=== PATIENT | male | born 1990 | race Caucasian/White ===

== ENCOUNTER 2020-02-18 16:52 | Emergency (ER) | payer OTHER ==
[~2020-02-18] VITALS: Ht 182.9 cm; Wt 87.5 kg
[2020-02-18 19:12] VITALS: BP 117/77
--- NOTE | 2020-02-18 21:27 | ED.ADGEN ---
Past Medical History Past Medical History: No Pertinent History Past Surgical History: No Surgical History Smoking Status: Current Every Day Smoker Alcohol Use: None General Adult EDM: Chief Complaint: OTHER COMPLAINTS HPI: HPI: Patient is a 29 year old male who presents to the emergency department with complaints of loss of taste and smell for the last 2 days. Patient reports that he has been a resident at [facility] for the last 2 weeks but they sent him here to the hospital for a Covid test after he advised them of his symptoms. Patient states that he was not able to go back to [facility] unless his test was negative. Patient denied any fever, shortness of breath, nausea, vomiting, diarrhea, abdominal pain, body aches, rash, or fatigue. He states he does have a dry cough but denies any shortness of breath. He currently denies any pain. Review of Systems: Review of Systems: Complete ROS is negative unless otherwise noted in HPI. Physical Exam: PE: See Above Constitutional: Well developed, well nourished, no acute distress, non-toxic appearance. [] HENT: Normocephalic, atraumatic, bilateral external ears normal, nose normal. [] Eyes: PERRLA, EOMI, conjunctiva normal, no discharge. [] Neck: Normal range of motion, no stridor. [] Cardiovascular:Heart rate regular rhythm Lungs & Thorax: Respirations even and unlabored, no retractions, no respiratory distress Skin: Warm, dry, no erythema, no rash. [] Extremities: No cyanosis, ROM intact, no edema. [] Neurologic: Alert and oriented X 3, no focal deficits noted. [] Psychologic: Affect normal, judgement normal, mood normal. [] Current Patient Data: Vital Signs: Vital Signs Date Time Temp Pulse Resp B/P (MAP) Pulse Ox O2 Delivery O2 Flow Rate FiO2 02/18/20 19:12 97.9 63 16 117/77 (90) 98 97.9 EKG: EKG: [] Heart Score: Risk Factors: Risk Factors: DM, Current or recent (<one month) smoker, HTN, HLP, family history of CAD, obesity. Risk Scores: Score 0 - 3: 2.5% MACE over next 6 weeks - Discharge Home Score 4 - 6: 20.3% MACE over next 6 weeks - Admit for Clinical Observation Score 7 - 10: 72.7% MACE over next 6 weeks - Early Invasive Strategies Radiology/Procedures: Radiology/Procedures: [] Course & Med Decision Making: Course & Med Decision Making Pertinent Labs and Imaging studies reviewed. (See chart for details) 29-year-old male presented with Covid-like symptoms. I advised the patient that the Covid swab takes least 2 days for results, vital signs are stable. I am for the patient that I would discharge him back to [facility], the patient eloped prior to being discharged. [] Horacioon Disclaimer: Angélica Disclaimer: This electronic medical record was generated, in whole or in part, using a voice recognition dictation system. Departure Departure Impression: Primary Impression: Eloped from emergency department Disposition: 07 AMA/ELOPED/LWBS Condition: STABLE [employer] Feb 18, 2020 21:26
--- NOTE | 2020-02-20 10:48 | NUR ---
IP: Informed pt of positive COVID test and the need to quarantine for 10 days from onset of symptoms. Pt verbalized understanding.
== END 2020-02-18 20:50 | disposition left against medical advice (07) ==
LOC: ER 16:52
DX: U07.1 COVID-19 (principal); F17.200 Nicotine dependence, unspecified, uncomplicated
CPT/HCPCS: 99283; C9803; U0003